=== PATIENT | male | born 1960 | race Two or more races ===

== ENCOUNTER 2020-01-23 10:25 | Inpatient (IN) | payer MEDICAID ==
[~2020-01-23] VITALS: Ht 162.6 cm; Wt 99.5 kg
[2020-01-23] MEDS ORDERED: HEPARIN SODIUM (PORCINE) 5000 UNITS/ML 1ML VIAL IV ONE (13:00)
[2020-01-23] MEDS ORDERED: ONDANSETRON HCL 4 MG/2 ML VIAL IV ONE (13:00)
[2020-01-23] MEDS ORDERED: MORPHINE SULFATE 4 MG/ML SYR/VIAL IV ONE (13:00)
[2020-01-23] MEDS ORDERED: SODIUM CHLORIDE 0.9% 1,000 ML IV ONE (13:00)
[2020-01-23 13:16] LABS: Basophils # (auto) 0 10 ^3/uL (0-0.2); Lymphocytes # (auto) 1.1 10 ^3/uL (0.4-5.4); Monocytes # (auto) 0.7 10 ^3/uL (0-1.3); Neutrophils # (auto) 7.7 10 ^3/uL (1.6-8.6); White Blood Cell 9.7 10^3/uL (4.4-10.8)
[2020-01-23 13:18] LABS: Basophils % (auto) 0.5 % (0.0-2.0); Eosinophils # (auto) 0.2 10 ^3/uL (0-0.8); Eosinophils % (auto) 1.6 % (0.0-7.0); Hematocrit 47.1 % (41.0-53.0); Hemoglobin 15.9 g/dL (13.5-17.5); Lymphocytes % (auto) 10.9 % (10.0-50.0); Mean Corpuscular Hemoglobin 29.5 pg (28.0-32.0); Mean Corpuscular Hgb Conc. 33.8 g/dL (32.0-36.0); Mean Corpuscular Volume 87.4 fL (80.0-100.0); Monocytes % (auto) 7.3 % (0.0-12.0); Neutrophils % (auto) 79.7 % (37.0-80.0); Nucleated Red Blood Cells % 0.1 %; Platelet Count (auto) 553 10^3/uL (140-450); Red Blood Cells 5.39 10^6/uL (4.5-5.90); Red Cell Distribution Width 14.4 % (11.8-14.3)
[2020-01-23 13:21] LABS: INR 1.04 (0.9-1.15); Partial Thromboplastin Time 29.8 sec (23.0-31.2)
[2020-01-23 13:27] LABS: Albumin 3.7 g/dL (3.4-5.0); Anion Gap 9 (5-15); Blood Urea Nitrogen 16 mg/dL (7-18); Calcium 8.6 mg/dL (8.5-10.1); Carbon Dioxide 23 mmol/L (21-32); Chloride 104 mmol/L (98-107); Glucose 337 mg/dL (74-106); Potassium 4.1 mmol/L (3.5-5.1); Sodium 136 mmol/L (136-145)
[2020-01-23 13:33] LABS: Alanine Aminotransferase 25 U/L (16-61); Alkaline Phosphatase 105 U/L (45-117); Aspartate Aminotransferase 10 U/L (15-37); BUN/Creatinine Ratio 18.4; Bilirubin, Total 0.6 mg/dL (0.2-1.0); GFR African American 114 mL/min; GFR Non-African American 95 mL/min
[2020-01-23 16:24] LABS: Urine Bacteria NONE SEEN /hpf (None Seen); Urine Blood Negative /uL (Negative); Urine Specific Gravity 1.036 (1.001-1.035); Urine WBC 1 /hpf (0 - 3)
[2020-01-23] MEDS ORDERED: NITROGLYCERIN 0.4 MG SL TAB SL PRN (16:45)
[2020-01-23] MEDS ORDERED: HYDROcodone-ACET 5/325MG TAB PO PRN (16:45)
[2020-01-23] MEDS ORDERED: MORPHINE SULF INJ 2 MG/ML SYRINGE 1ML IV PRN (16:45)
[2020-01-23] MEDS ORDERED: DEXTROSE (50%) 50ML SYRG IV PRN (16:45)
[2020-01-23] MEDS ORDERED: ONDANSETRON HCL 4 MG/2 ML VIAL IV PRN (16:45)
[2020-01-23] MEDS ORDERED: ACETAMINOPHEN 500 MG TAB PO PRN (16:45)
[2020-01-23] MEDS ORDERED: LABETALOL HCL 5 MG/ML 4ML SYRINGE IV PRN (16:45)
[2020-01-23] MEDS: InsuLIN REG 1unit/0.01ml Soln (100units/ml) SC SCH ×2 (17:55→22:47)
[2020-01-23] MEDS: ACCU-CHEK COMFORT CURVE STRIP VI SCH ×2 (17:55→22:45)
--- NOTE | 2020-01-23 21:40 | NUR ---
Telemetry admit from ER MARC[facility]ADR[facility] admitted to Telemetry unit after SBAR received. Patient oriented to KRISTI MARISCAL RN primary RN, unit, room, bed, and unit policies regarding patient care and visiting hours. Patient now on continuous telemetry monitoring, tele box #36 and telemetry reading on arrival to unit is SR in the 80's. Patient placed on bedside oxygen, weighed by bed scale and encouraged to call if they need something. Safety measures maintained by keeping the bed locked in lowest position, 2 side rails up, personal items and call light within reach. All questions and concerns addressed, patient verbalized understanding.
[2020-01-23 22:41] VITALS: BP 160/92
[2020-01-23 22:44] VITALS: BP 160/92
[2020-01-23] MEDS: ENOXAPARIN SOD 100 MG/1 ML SYRINGE SC SCH (22:45)
[2020-01-23] MEDS: MORPHINE SULF INJ 2 MG/ML SYRINGE 1ML IV PRN (23:06)
[2020-01-23 23:14] VITALS: BP 158/73
[2020-01-23] MEDS ORDERED: WARF2TAB49 PO (23:34)
[2020-01-23] MEDS ORDERED: NIFE1TAB36 PO (23:34)
[2020-01-23] MEDS ORDERED: TEMA15CA PO (23:34)
[2020-01-23] MEDS ORDERED: SIMV-8 PO (23:34)
[2020-01-23] MEDS ORDERED: WARF1TAB36 PO (23:36)
[2020-01-24] MEDS: MORPHINE SULF INJ 2 MG/ML SYRINGE 1ML IV PRN (04:00)
[2020-01-24 05:22] VITALS: BP 149/84
[2020-01-24] MEDS: ACCU-CHEK COMFORT CURVE STRIP VI SCH ×4 (06:31→22:00)
[2020-01-24] MEDS: InsuLIN REG 1unit/0.01ml Soln (100units/ml) SC SCH ×4 (06:35→22:07)
--- NOTE | 2020-01-24 07:35 | NUR ---
Opening Shift Note Assumed care of patient, awake and alert. No S/S of distress/SOB or pain. Instructed on POC and to call for assistance PRN bed is locked and in lowest position, bed rails up x2 , call light is with in reach, will continue to monitor for changes Q1hr and PRN.
[2020-01-24 08:46] VITALS: BP 151/84
[2020-01-24] MEDS: ENOXAPARIN SOD 100 MG/1 ML SYRINGE SC SCH ×2 (10:06→22:01)
[2020-01-24] MEDS: amLODIPine BESYLATE 5 MG TAB PO SCH (10:06)
[2020-01-24] MEDS: FAMOTIDINE 20 MG TAB PO SCH (10:06)
[2020-01-24 13:00] VITALS: BP 156/82
[2020-01-24 14:07] LABS: Eosinophils # (auto) 0.3 10 ^3/uL (0-0.8); Lymphocytes # (auto) 1.4 10 ^3/uL (0.4-5.4); Neutrophils # (auto) 6.1 10 ^3/uL (1.6-8.6)
[2020-01-24 14:08] LABS: Basophils # (auto) 0 10 ^3/uL (0-0.2); Basophils % (auto) 0.5 % (0.0-2.0); Hematocrit 45.5 % (41.0-53.0); Hemoglobin 15.4 g/dL (13.5-17.5); Lymphocytes % (auto) 16.4 % (10.0-50.0); Mean Corpuscular Hemoglobin 29.6 pg (28.0-32.0); Mean Corpuscular Hgb Conc. 33.7 g/dL (32.0-36.0); Mean Corpuscular Volume 87.8 fL (80.0-100.0); Monocytes # (auto) 0.7 10 ^3/uL (0-1.3); Monocytes % (auto) 7.8 % (0.0-12.0); Neutrophils % (auto) 72.3 % (37.0-80.0); Nucleated Red Blood Cells % 0.1 %; Platelet Count (auto) 544 10^3/uL (140-450); Red Blood Cells 5.19 10^6/uL (4.5-5.90); Red Cell Distribution Width 14.2 % (11.8-14.3); White Blood Cell 8.4 10^3/uL (4.4-10.8)
[2020-01-24 14:19] LABS: INR 1.03 (0.9-1.15)
[2020-01-24 14:30] LABS: Albumin 3.2 g/dL (3.4-5.0); BUN/Creatinine Ratio 16.8; Calcium 8.2 mg/dL (8.5-10.1); Potassium 4.2 mmol/L (3.5-5.1)
[2020-01-24 14:33] LABS: Bilirubin, Total 0.3 mg/dL (0.2-1.0); Total Protein 7.6 g/dL (6.4-8.2)
[2020-01-24] MEDS: HYDROmorphone HCL 2 MG/ML VL IV PRN ×2 (16:00→20:05)
[2020-01-24 16:13] VITALS: BP 159/75
[2020-01-24] MEDS ORDERED: WARFARIN SODIUM 5 MG TAB PO ONE (17:00)
--- NOTE | 2020-01-24 19:45 | NUR ---
Opening Shift Note Assumed care of patient, awake and alert. A&Ox4. Patient out of bed. No S/S of distress/SOB or pain. Safety measures maintained by keeping the bed locked in lowest position, 2 side rails up, personal items and call light within reach. Instructed on POC and to call for assist PRN, will continue to monitor for changes Q1hr and PRN.
[2020-01-24 22:00] VITALS: BP 159/85
[2020-01-24] MEDS ORDERED: ATORVASTATIN 20 MG TAB PO SCH (22:00)
[2020-01-24] MEDS: INSULIN LANTUS (GLARGINE) 1 /0.01ml (100units/ml) SC SCH (22:08)
[2020-01-25] MEDS: HYDROmorphone HCL 2 MG/ML VL IV PRN ×3 (00:36→11:32)
[2020-01-25 05:00] VITALS: BP 139/73
[2020-01-25 06:20] LABS: Basophils # (auto) 0 10 ^3/uL (0-0.2); Basophils % (auto) 0.4 % (0.0-2.0); Eosinophils # (auto) 0.3 10 ^3/uL (0-0.8); Eosinophils % (auto) 3.2 % (0.0-7.0); Hematocrit 41.2 % (41.0-53.0); Hemoglobin 13.9 g/dL (13.5-17.5); Mean Corpuscular Hemoglobin 29.5 pg (28.0-32.0); Mean Corpuscular Hgb Conc. 33.6 g/dL (32.0-36.0); Monocytes # (auto) 0.8 10 ^3/uL (0-1.3)
[2020-01-25 06:22] LABS: Lymphocytes # (auto) 1.8 10 ^3/uL (0.4-5.4); Lymphocytes % (auto) 20.4 % (10.0-50.0); Mean Corpuscular Volume 87.9 fL (80.0-100.0); Monocytes % (auto) 8.7 % (0.0-12.0); Neutrophils % (auto) 67.3 % (37.0-80.0); Platelet Count (auto) 514 10^3/uL (140-450); Red Blood Cells 4.69 10^6/uL (4.5-5.90); Red Cell Distribution Width 14.1 % (11.8-14.3)
[2020-01-25 06:30] LABS: INR 1.05 (0.9-1.15)
[2020-01-25] MEDS: ACCU-CHEK COMFORT CURVE STRIP VI SCH ×2 (06:31→11:33)
[2020-01-25] MEDS: INSULIN LANTUS (GLARGINE) 1 /0.01ml (100units/ml) SC SCH (06:38)
[2020-01-25] MEDS: InsuLIN REG 1unit/0.01ml Soln (100units/ml) SC SCH ×2 (06:39→11:36)
[2020-01-25 06:48] LABS: Bilirubin, Total 0.3 mg/dL (0.2-1.0); Calcium 8.6 mg/dL (8.5-10.1)
--- NOTE | 2020-01-25 07:30 | NUR ---
Opening Shift Note Assumed care of patient, awake and alert. No S/S of distress/SOB or pain. Bed is low, locked with 2x side rails up. Call light is within reach. Instructed on POC and to call for assist PRN, will continue to monitor for changes Q1hr and PRN.
[2020-01-25 08:30] VITALS: BP 161/70
[2020-01-25] MEDS: ENOXAPARIN SOD 100 MG/1 ML SYRINGE SC SCH (09:21)
[2020-01-25] MEDS: FAMOTIDINE 20 MG TAB PO SCH (09:22)
[2020-01-25] MEDS: amLODIPine BESYLATE 5 MG TAB PO SCH (09:23)
[2020-01-25] MEDS ORDERED: NIFEdipine ER 30 MG TAB PO SCH (10:00)
[2020-01-25 12:30] VITALS: BP 145/76
[2020-01-25] MEDS ORDERED: APIXABAN 5 MG TAB PO ONE (13:00)
[2020-01-25 15:06] VITALS: BP 145/76
--- NOTE | 2020-01-25 16:39 | NUR ---
Discharge instructions given as ordered. Encourage to follow up with PMD as instructed. Could not schedule a follow up appointment d/t PCP office not answering. Patient encouraged to call PCP for f/u as soon as possible. All questions and concerns addressed. Patient verbalized understanding. Patient given hard copy of Eliquis prescription. Discussed S/E of medications with patient. IV removed with catheter intact, pressure dressing applied. Telemetry unit returned to ICU. Patient taken to vehicle via wheelchair with all personal belongings, accompanied by staff. No distress noted at time of departure.
[2020-01-25] MEDS ORDERED: WARFARIN SODIUM 2.5 MG TAB PO ONE (17:00)
[2020-01-25] MEDS ORDERED: APIXABAN 5 MG TAB PO SCH (22:00)
[2020-02-01] MEDS ORDERED: APIXABAN 5 MG TAB PO SCH (10:00)
== END 2020-01-25 16:49 | disposition home or self-care (01) | DRG 197 ==
LOC: ER 10:25 → TELE 10:26 → TELE-CENTR 21:45
PROVIDERS: ADMIT Nurse Practitioner Acute Care; ATTEND Internal Medicine
DX: I82.431 Acute embolism and thrombosis of right popliteal vein (principal); E11.21 Type 2 diabetes mellitus with diabetic nephropathy; E44.1 Mild protein-calorie malnutrition; E87.1 Hypo-osmolality and hyponatremia; I82.411 Acute embolism and thrombosis of right femoral vein; E88.09 Other disorders of plasma-protein metabolism, not elsewhere classified; I10 Essential (primary) hypertension; E66.9 Obesity, unspecified; D68.59 Other primary thrombophilia; E78.5 Hyperlipidemia, unspecified; Z79.01 Long term (current) use of anticoagulants; Z79.899 Other long term (current) drug therapy; Z86.73 Personal history of transient ischemic attack (TIA), and cerebral infarction without residual deficits; Z68.38 Body mass index [BMI] 38.0-38.9, adult
CPT/HCPCS: 36415; 71045; 80053; 81001; 82962; 83036; 84443; 84484; 85025; 85610; 85730; 93971; 96361; 96374; 96375; G0378; J1815; J2405